=== PATIENT | female | born 1940 | race Caucasian/White ===

== ENCOUNTER 2025-04-26 13:32 | Inpatient (IN) | payer MEDICARE ==
[2025-04-26 14:04] LABS: #Basophils 0.04 10x3/uL (0.0-0.2); #Eosinophils 0.29 10x3/uL (0.0-0.5); #Monocytes 0.68 10x3/uL (0.0-1.1); #Neutrophils 4.21 10x3/uL (1.5-8.4); %Basophils 0.5 % (0.0-2.0); %Eosinophils 3.8 % (0.0-6.0); %Lymphocytes 32.1 % (18.0-47.0); %Monocytes 8.8 % (0.0-10.0); %Neutrophils 54.4 % (40.0-75.0); Hematocrit 39.3 % (34.9-44.5); Hemoglobin 12.8 g/dL (12.0-15.5); Mean Corpuscular Hemoglobin 31.8 pg (27.0-33.0); Mean Corpuscular Volume 97.5 fL (81.6-98.3); Platelet Count 173 10x3/uL (150-450); Red Blood Cell (RBC) Count 4.03 10x6/uL (3.90-5.03); White Blood Cell (WBC) Count 7.73 10x3/uL (3.5-10.5)
[2025-04-26 14:20] LABS: ALT (SGPT) 44 U/L (Less than 34); AST (SGOT) 39 U/L (11-34); Albumin 3.9 g/dL (3.1-4.5); Alkaline Phosphatase 86 U/L (40-110); Anion Gap 17 mmol/L (10-20); BUN (Urea Nitrogen) 28 mg/dL (9.8-20.1); Bilirubin, Total 1.0 mg/dL (0.3-1.2); CK (CPK) 472 U/L (29-168); Calc. Creatinine Clearance 0 mL/min (70-130); Calcium 9.9 mg/dL (7.8-10.44); Carbon Dioxide 21 mmol/L (23-31); Chloride 108 mmol/L (98-107); Globulin 3.1 g/dL (2.4-3.5); Glucose 146 mg/dL (83-110); Magnesium 1.9 mg/dL (1.6-2.6); Potassium 4.6 mmol/L (3.5-5.1); Sodium 141 mmol/L (136-145)
[2025-04-26 14:23] LABS: Troponin I 0.025 ng/mL (< 0.028)
[2025-04-26 14:56] LABS: INR-International Normal Ratio 1.9; PTT 29.9 sec (22.0-33.0); Prothrombin Time 19.7 sec (9.5-12.1)
[2025-04-26 16:52] LABS: Glucose, Urine (Dipstick) Normal (Negative); Leukocyte 25 (Negative); Protein, Urine (Dipstick) 30 mg/dl (Neg-Trace); Specific Gravity, Urine 1.015 (1.005-1.030)
[2025-04-26 17:17] LABS: Bacteria/HPF 2+ HPF (None Seen); CAUTI Indications for Culture Alt mental st,lethar; RBC/HPF 0-3 HPF (0-3)
[2025-04-26 17:20] LABS: Mucous/LPF 1+ LPF (<2+)
[2025-04-26 17:22] LABS: Urine Culture Reflex No No
[2025-04-26] MEDS ORDERED: Ondansetron PF 4 MG/2 ML Vial IVP PRN (17:37)
[2025-04-26] MEDS ORDERED: Senokot S 8.6-50 MG TAB PO PRN (17:37)
[2025-04-26] MEDS ORDERED: Calcium Carbonate 500 MG ChewTAB PO PRN (17:37)
[2025-04-26] MEDS ORDERED: Acetaminophen 325 MG TAB PO PRN (17:37)
[2025-04-26] MEDS ORDERED: Dextrose 50% Abboject 50 ML SYRINGE SLOW IVP PRN (17:41)
[2025-04-26] MEDS ORDERED: Glucagon 1 MG/ML KIT IM PRN (17:41)
[2025-04-26] MEDS ORDERED: Electrolyte Replacement Protocol 1 EACH FS SCH (17:45)
[2025-04-26 18:07] VITALS: BMI 28.6
[2025-04-26] MEDS: Magnesium 2 GM/50 ML(in water) 2 GM in Premix 1 BAG IVPB SCH (19:47)
[2025-04-27 04:30] LABS: #Basophils 0.05 10x3/uL (0.0-0.2); #Eosinophils 0.31 10x3/uL (0.0-0.5); #Monocytes 0.51 10x3/uL (0.0-1.1); #Neutrophils 2.93 10x3/uL (1.5-8.4); %Basophils 0.8 % (0.0-2.0); %Eosinophils 4.8 % (0.0-6.0); %Lymphocytes 41.3 % (18.0-47.0); %Monocytes 7.8 % (0.0-10.0); %Neutrophils 44.8 % (40.0-75.0); Hematocrit 37.5 % (34.9-44.5); Hemoglobin 12.2 g/dL (12.0-15.5); Mean Corpuscular Hemoglobin 31.4 pg (27.0-33.0); Mean Corpuscular Volume 96.6 fL (81.6-98.3); Platelet Count 141 10x3/uL (150-450); Red Blood Cell (RBC) Count 3.88 10x6/uL (3.90-5.03); White Blood Cell (WBC) Count 6.52 10x3/uL (3.5-10.5)
[2025-04-27 04:48] LABS: INR-International Normal Ratio 2.4; Prothrombin Time 24.3 sec (9.5-12.1)
[2025-04-27 04:53] LABS: Anion Gap 14 mmol/L (10-20); BUN (Urea Nitrogen) 25 mg/dL (9.8-20.1); Calc. Creatinine Clearance 43 mL/min (70-130); Calcium 9.2 mg/dL (7.8-10.44); Carbon Dioxide 22 mmol/L (23-31); Chloride 111 mmol/L (98-107); Glucose 126 mg/dL (83-110); Potassium 4.0 mmol/L (3.5-5.1); Sodium 143 mmol/L (136-145)
[2025-04-27 12:27] LABS: Digoxin 0.90 ng/mL (0.8-2.0)
[2025-04-27] MEDS ORDERED: Rosuvastatin 20 MG TAB PO SCH (21:00)
[2025-04-27] MEDS: Transdermal Patch Removal TOP SCH (22:30)
[2025-04-28 05:27] LABS: INR-International Normal Ratio 2.9; Prothrombin Time 29.0 sec (9.5-12.1)
[2025-04-28 05:29] LABS: Anion Gap 13 mmol/L (10-20); BUN (Urea Nitrogen) 24 mg/dL (9.8-20.1); Calc. Creatinine Clearance 41 mL/min (70-130); Calcium 9.6 mg/dL (7.8-10.44); Carbon Dioxide 24 mmol/L (23-31); Chloride 109 mmol/L (98-107); Glucose 139 mg/dL (83-110); Potassium 4.1 mmol/L (3.5-5.1); Sodium 142 mmol/L (136-145)
[2025-04-28] MEDS: Digoxin 0.125 MG TAB PO SCH (09:05)
[2025-04-28] MEDS: Ezetimibe 10 MG TAB PO SCH (09:06)
[2025-04-28] MEDS: Metoprolol Succinate XL 25 MG ER.TAB PO SCH (09:06)
[2025-04-28 13:21] VITALS: TEMP 97.9
[2025-04-28 15:10] VITALS: BP 150/87
[2025-04-28] MEDS: metFORMIN 500 MG TAB PO SCH (16:01)
[2025-04-28] MEDS ORDERED: Rosuvastatin 20 MG TAB PO SCH (21:00)
== END 2025-04-28 17:00 | disposition home health service (06) | DRG 641 ==
LOC: CSHERS 13:32 → CSHTELE 16:55 → OBSVTOIN 04-27 09:55
PROVIDERS: ADMIT Family Medicine; ATTEND Family Medicine
DX: E86.0 Dehydration (principal); N17.9 Acute kidney failure, unspecified; I48.91 Unspecified atrial fibrillation; I25.10 Atherosclerotic heart disease of native coronary artery without angina pectoris; E78.5 Hyperlipidemia, unspecified; E03.9 Hypothyroidism, unspecified; I10 Essential (primary) hypertension; M19.90 Unspecified osteoarthritis, unspecified site; E11.9 Type 2 diabetes mellitus without complications; Z98.890 Other specified postprocedural states; Z95.2 Presence of prosthetic heart valve; Z95.1 Presence of aortocoronary bypass graft; Z90.710 Acquired absence of both cervix and uterus; Z88.8 Allergy status to other drugs, medicaments and biological substances; Z79.899 Other long term (current) drug therapy; Z79.890 Hormone replacement therapy; Z79.84 Long term (current) use of oral hypoglycemic drugs; Z79.01 Long term (current) use of anticoagulants; Z90.89 Acquired absence of other organs; Z88.5 Allergy status to narcotic agent; M81.0 Age-related osteoporosis without current pathological fracture
CPT/HCPCS: 36415; 36416; 70450; 71045; 80048; 80053; 80162; 81001; 82550; 83735; 83880; 84443; 84484; 85025; 85610; 85730; 87428; 93005; 94760; 96375; G0378; J1815; J3475; J7120

== ENCOUNTER 2025-08-18 11:43 | Emergency (ER) | payer MEDICARE ==
[2025-08-18 12:44] LABS: Glucose, Urine (Dipstick) Normal (Negative); Leukocyte Negative (Negative); Protein, Urine (Dipstick) 100 mg/dl (Neg-Trace); Specific Gravity, Urine 1.010 (1.005-1.030)
[2025-08-18 13:08] LABS: Bacteria/HPF 2+ HPF (None Seen); CAUTI Indications for Culture Alt mental st,lethar; WBC/HPF None Seen HPF (0-3)
[2025-08-18 13:09] LABS: Urine Culture Reflex No No
== END 2025-08-18 14:48 | disposition home or self-care (01) ==
LOC: CSHERS 11:43
DX: R53.1 Weakness (principal); F41.9 Anxiety disorder, unspecified; I48.91 Unspecified atrial fibrillation; I25.10 Atherosclerotic heart disease of native coronary artery without angina pectoris
CPT/HCPCS: 51701; 81001; 93005; 99285